=== PATIENT | female | born 1980 | race Caucasian/White ===

== ENCOUNTER 2023-10-21 16:48 | Emergency (ER) | payer BC | END 2023-10-21 18:47 | disposition home or self-care (01) | LOC: JP.ED 16:48 | DX: H54.62 Unqualified visual loss, left eye, normal vision right eye (principal); H43.12 Vitreous hemorrhage, left eye; E11.9 Type 2 diabetes mellitus without complications; E78.00 Pure hypercholesterolemia, unspecified; J45.909 Unspecified asthma, uncomplicated; Z79.4 Long term (current) use of insulin; Z79.899 Other long term (current) drug therapy; Z88.8 Allergy status to other drugs, medicaments and biological substances | CPT/HCPCS: 99283 ==